=== PATIENT | male | born 1990 | race Caucasian/White ===

== ENCOUNTER 2018-11-30 05:45 | Emergency (ER) | payer OTHER ==
[~2018-11-30] VITALS: Ht 182.9 cm; Wt 80.7 kg
[~2018-11-30 05:45] MED LIST: TAMIFLU75 MG ORAL
[2018-11-30 05:52] VITALS: BP 133/86
--- NOTE | 2018-11-30 05:52 | NUR ---
ED Nurse Note: Walk-in patient presents with complaints of rash at left face x 3 days. Patient reports pain level of 3/10.
[2018-11-30] MEDS ORDERED: Acetaminophen 500mg (ES) tab ORAL ONE (06:30)
[2018-11-30] MEDS ORDERED: Neosporin Oint Ud Pkt TOPIC ONE (06:30)
[2018-11-30] MEDS ORDERED: Tetanus/Diptheria/Pertussis IM ONE (06:30)
--- NOTE | 2018-11-30 06:33 | Emergency Room Report ---
History of Present Illness General Chief Complaint: Skin Rash/Abscess Source: Patient Present Illness HPI The patient presents with 2 days of developing rash along the left side of his face. In the beginning he felt that he was having sinus problems. He denies any fever but feels fatigued. He took an Advil half an hour before coming to the hospital. He rates the pain 4/10 at this time and aching. It is constant. He feels a little bit of pain in his jaw also by the TMJ. Denies any eye pain or change in vision. In addition he has no change in his hearing or sore throat. His doctor prescribed ointment for him. His doctor felt it might be impetigo. This was without examining the patient. The patient has no ill contacts and has no immune suppressed condition that he knows of. He is unsure when his last tetanus vaccination was. No chills, chest pain, palpitations, nausea, vomiting, diarrhea, dysuria, abdominal pain, shortness of breath, depression, anxiety, headache. Allergies: Coded Allergies: PENICILLINS (Verified Allergy, Unknown, 05/02/15) Patient History Past Medical History: see triage record Social History: Denies: smoking Social History Narrative Works for [employer] Reviewed Nursing Documentation: PMH: Agreed; PSxH: Agreed Nursing Documentation-PMH Past Medical History: No Stated History Review of Systems All Other Systems: negative except mentioned in HPI Physical Exam Vital Signs Date Time Temp Pulse Resp B/P (MAP) Pulse Ox O2 Delivery O2 Flow Rate FiO2 11/30/18 05:52 97.9 64 15 133/86 (102) 97 Room Air Sp02 EP Interpretation: reviewed, normal General Appearance: well appearing, no apparent distress, GCS 15 Head: normocephalic, atraumatic Eyes: bilateral eye normal inspection, bilateral eye PERRL, bilateral eye EOMI ENT: normal pharynx, TMs + canals normal - L examined, moist mucus membranes Neck: full range of motion, supple Respiratory: lungs clear Cardiovascular #1: regular rate, rhythm Cardiovascular #2: 2+ radial (R) Gastrointestinal: normal inspection Musculoskeletal: gait/station normal Neurologic: alert, oriented x3, grossly normal Psychiatric: mood/affect normal Skin: warm/dry, other - vesicular rash with erythematous base without crusting V2 distribution Medical Decision Making Diagnostic Impression: Primary Impression: Shingles Qualified Codes: B02.9 - Zoster without complications ER Course Patient presents with 2 days of vesicular rash in the left side of the face. Differential impetigo, cellulitis or shingles. Due to the appearance of the rash this is more likely to be shingles however impetigo cannot be excluded. Tetanus will be updated. The patient will be given a dose of acyclovir and Tylenol. In addition Neosporin will be applied. Discussed with patient the 2 possible etiologies of the rash. Discussed the need for treatment and close follow-up with his doctor with suggested further laboratory tests. In addition told the patient of cautions for his eye. If he starts having eye pain he was advised to be the return immediately or to seek consultation with an consultant education. There is no evidence of ocular involvement at this time. Patient stable for outpatient observation and treatment. (Patient later called with some eye irritation. Advised either to f/u PMD or to return. Discussed with PA and oncoming MD if patient returns to perform slit lamp exam.) Last Vital Signs Date Time Temp Pulse Resp B/P (MAP) Pulse Ox O2 Delivery O2 Flow Rate FiO2 11/30/18 06:53 97.9 78 15 133/86 97 Room Air Status: improved Disposition: HOME, SELF-CARE Condition: Improved Scripts Cephalexin* (KEFLEX*) 500 Mg Capsule 500 MG ORAL EVERY 6 HOURS, #28 CAP Prov: Ian Nielsen MD 11/30/18 Ibuprofen* (MOTRIN*) 600 Mg Tablet 600 MG ORAL Q6H PRN for For Pain, #20 TAB 0 Refills Prov: Ian Nielsen MD 11/30/18 Mupirocin* (MUPIROCIN*) 22 Gm Oint...g. 1 APPLIC TOPIC THREE TIMES A DAY, #20 GM Prov: Ian Nielesn MD 11/30/18 Valacyclovir Hcl* (VALTREX*) 500 Mg Tablet 1000 MG ORAL TID, #20 TAB Prov: Ian Nielsen MD 11/30/18 Referrals: NON PHYSICIAN (PCP) Ian Nielsen MD Nov 30, 2018 06:33
[2018-11-30] MEDS ORDERED: CEPHALEXIN500 MG ORAL (06:38)
[2018-11-30] MEDS ORDERED: MUPIROCIN22 GM TOPIC (06:38)
[2018-11-30] MEDS ORDERED: IBUPROFEN600 MG ORAL (06:38)
[2018-11-30] MEDS ORDERED: VALACYCLOVIR500 MG ORAL (06:38)
[2018-11-30 06:53] VITALS: BP 133/86
--- NOTE | 2018-11-30 06:53 | NUR ---
ED Nurse Note: Patient cleared for discharge by ERMD, no s/s of acute distress and verbalized understanding of discharge instructions. Patient departed with all belongings to his personal vehicle.
== END 2018-11-30 06:53 | disposition home or self-care (01) ==
LOC: EMR 06:21
DX: B02.9 Zoster without complications (principal); Z88.0 Allergy status to penicillin; Z23 Encounter for immunization
CPT/HCPCS: 90471; 90715; 99283

== ENCOUNTER 2020-01-22 01:58 | Emergency (ER) | payer OTHER ==
[~2020-01-22] VITALS: Ht 182.9 cm; Wt 83.0 kg
[~2020-01-22 01:58] MED LIST changes: +CEPHALEXIN500 MG ORAL; +IBUPROFEN600 MG ORAL; +MUPIROCIN22 GM TOPIC; +VALACYCLOVIR500 MG ORAL
[2020-01-22 02:09] VITALS: BP 143/94
--- NOTE | 2020-01-22 02:09 | NUR ---
ED Nurse Note: pt ambulated into ed from home CO inability to sleep at night due to anxiety. pt aao x 4, ambulates with steady gait, vss no ss of distress noted. pt denies pain, SOB, n/v, fever. pt denies chest pain or cardiac issues. Awaiting ERMD at bedside. pt placed in gown. awaiting further orders.
--- NOTE | 2020-01-22 02:26 | NUR ---
ED Nurse Note: ERMD at bedside
--- NOTE | 2020-01-22 02:37 | Emergency Room Report ---
History of Present Illness General Chief Complaint: General Complaint Source: Patient Present Illness HPI Patient presents with inability to sleep and occasional tachycardia after ingesting mushrooms and cocaine on Monday. He also did this on Monday. We are now early Monday morning. He had to cloth covered helmet puller when he was driving back from [place] because he felt that he was going to pass out. His friends gave him a ride back to [place]. This got better. This was on Monday. On Monday he was fasting and then worked out. He had some bouts of diarrhea. He denies any fevers or chills. There is no chest pain or body pain. Patient is treated for anxiety with gabapentin. He tried taking a dose yesterday. It has not helped. He had continued feelings of anxiety and insomnia. He also had some shortness of breath and palpitations. He spoke with his therapist yesterday who recommended presenting to the emergency department. He presented to the emergency department for evaluation. Risk factors for cardiac disease: None, recent cocaine use Prior to the trip to [place] he tested negative for Covid along with his friends. He took a test yesterday but does not have results yet. No fevers, chills, sore throat, nausea, vomiting, diarrhea, dysuria, abdominal pain, joint pain, rashes, headache. Allergies: Coded Allergies: PENICILLINS (Verified Allergy, Unknown, 05/02/15) SULFA (SULFONAMIDE ANTIBIOTICS) (Verified Allergy, Unknown, 01/22/20) COVID-19 Screening Contact w/high risk pt: No Experienced COVID-19 symptoms?: No COVID-19 Testing performed ADMINISTRATIVE SUPPORT COORDINATOR: No COVID-19 Screening: Negative COVID-19 COVID-19 Testing Source: [facility] Patient History Past Medical History: see triage record Social History: Reports: drug use; Denies: smoking Social History Narrative Works for [employer] Reviewed Nursing Documentation: PMH: Agreed; PSxH: Agreed Nursing Documentation-PMH Past Medical History: No History, Except For Review of Systems All Other Systems: negative except mentioned in HPI Physical Exam Vital Signs Date Time Temp Pulse Resp B/P (MAP) Pulse Ox O2 Delivery O2 Flow Rate FiO2 01/22/20 02:01 97.7 66 18 143/94 (110) 98 Room Air Sp02 EP Interpretation: reviewed, normal General Appearance: well appearing, no apparent distress, GCS 15 Head: normocephalic Eyes: left eye abnormal EOM - Inferior rectus laxity; bilateral eye normal i nspection, bilateral eye PERRL ENT: moist mucus membranes Neck: supple Respiratory: lungs clear, normal breath sounds Cardiovascular #1: regular rate, rhythm Cardiovascular #2: 2+ radial (R) Gastrointestinal: normal inspection, normal bowel sounds, non tender, no mass, non-distended Musculoskeletal: back normal, normal range of motion, gait/station normal Neurologic: alert, shop tailor III-XII nml as tested - See EOM, distal neuro normal, oriented x3, sensory intact, cerebellar normal, motor weakness, speech normal Psychiatric: anxious Skin: no rash, warm/dry Medical Decision Making Diagnostic Impression: Primary Impression: Hyperventilation Additional Impressions: Substance abuse Anxiety ER Course Patient presents with dyspnea this intermittent after ingesting mushrooms and cocaine on Monday and Monday. Differential includes exacerbation of anxiety, electrolyte imbalance, other adulterants in the drugs used, cardiac arrhythmia amongst others. Based on his history and physical exam pulmonary bolus is extremely unlikely. Patient evaluated with EKG and labs. Patient treated with IV hydration. Patient unable to receive a dose of Ativan as he is walked here from his home. Labs unremarkable aside from elevated BUN. Patient improved after IV hydration. Discussed findings and most likely etiology of dyspnea and palpitations. Discussed staining from cocaine. Discussed the importance of outpatient follow- up. Patient given a dose of Vistaril prior to discharge. No medical emergency at this time. Patient stable for outpatient observation and treatment. Laboratory Tests Test 01/22/20 02:40 01/22/20 03:20 White Blood Count 6.0 K/UL (4.8-10.8) Red Blood Count 5.19 M/UL (4.70-6.10) Hemoglobin 16.0 G/DL (14.2-18.0) Hematocrit 46.6 % (42.0-52.0) Mean Corpuscular Volume 90 FL (80-99) Mean Corpuscular Hemoglobin 30.7 PG (27.0-31.0) Mean Corpuscular Hemoglobin Concent 34.3 G/DL (32.0-36.0) Red Cell Distribution Width 12.2 % (11.6-14.8) Platelet Count 246 K/UL (150-450) Mean Platelet Volume 6.9 FL (6.5-10.1) Neutrophils (%) (Auto) 40.9 % (45.0-75.0) L Lymphocytes (%) (Auto) 43.5 % (20.0-45.0) Monocytes (%) (Auto) 11.1 % (1.0-10.0) H Eosinophils (%) (Auto) 3.2 % (0.0-3.0) H Basophils (%) (Auto) 1.3 % (0.0-2.0) Prothrombin Time 11.1 SEC (9.30-11.50) Prothrombin Time INR 1.0 (0.9-1.1) Activated Partial Thromboplast Time 29 SEC (23-33) Sodium Level 135 MMOL/L (136-145) L Potassium Level 4.0 MMOL/L (3.5-5.1) Chloride Level 102 MMOL/L (98-107) Carbon Dioxide Level 28 MMOL/L (21-32) Anion Gap 5 mmol/L (5-15) Blood Urea Nitrogen 19 mg/dL (7-18) H Creatinine 1.1 MG/DL (0.55-1.30) Estimated Glomerular Filtration Rate > 60 mL/min (>60) Glucose Level 99 MG/DL (74-106) Calcium Level 8.5 MG/DL (8.5-10.1) Magnesium Level 2.2 MG/DL (1.8-2.4) Total Bilirubin 0.9 MG/DL (0.2-1.0) Aspartate Amino Transferase (AST) 22 U/L (15-37) Alanine Aminotransferase (ALT) 27 U/L (12-78) Alkaline Phosphatase 77 U/L (46-116) Total Creatine Kinase 102 U/L (26-308) Troponin I 0.000 ng/mL (0.000-0.056) C-Reactive Protein, Quantitative < 0.4 mg/dL (0.00-0.90) Pro-B-Type Natriuretic Peptide 11 pg/mL (0-125) Total Protein 7.3 G/DL (6.4-8.2) Albumin 4.1 G/DL (3.4-5.0) Globulin 3.2 g/dL Albumin/Globulin Ratio 1.3 (1.0-2.7) Urine Color Pale yellow Urine Appearance Clear Urine pH 6 (4.5-8.0) Urine Specific [place] 1.015 (1.005-1.035) Urine Protein Negative (NEGATIVE) Urine Glucose (UA) Negative (NEGATIVE) Urine Ketones Negative (NEGATIVE) Urine Blood Negative (NEGATIVE) Urine Nitrite Negative (NEGATIVE) Urine Bilirubin Negative (NEGATIVE) Urine Urobilinogen Normal MG/DL (0.0-1.0) Urine Leukocyte Esterase Negative (NEGATIVE) Urine Opiates Screen Negative (NEGATIVE) Urine Barbiturates Screen Negative (NEGATIVE) Phencyclidine (PCP) Screen Negative (NEGATIVE) Urine Amphetamines Screen Negative (NEGATIVE) Urine Benzodiazepines Screen Negative (NEGATIVE) Urine Cocaine Screen Negative (NEGATIVE) Urine Marijuana (THC) Screen Negative (NEGATIVE) EKG Diagnostic Results Rate: normal Rhythm: NSR ST Segments: no acute changes Rhythm Strip Diag. Results EP Interpretation: yes Rhythm: NSR, no PVC's, no ectopy Last Vital Signs Date Time Temp Pulse Resp B/P (MAP) Pulse Ox O2 Delivery O2 Flow Rate FiO2 01/22/20 04:42 97.7 63 16 129/81 99 Room Air Status: improved Disposition: HOME, SELF-CARE Condition: Improved Scripts Hydroxyzine Pamoate (VISTARIL) 25 Mg Capsule 25 MG PO Q8HR PRN for For Anxiety, #10 CAP Prov: Ian Nielsen MD 01/22/20 Referrals: NON PHYSICIAN (PCP) Ian Nielsen MD Jan 22, 2020 02:37
[2020-01-22 02:50] LABS: BASOPHILS % (AUTO) 1.3 % (0.0-2.0); EOSINOPHILS % (AUTO) 3.2 % (0.0-3.0); HEMATOCRIT 46.6 % (42.0-52.0); LYMPHOCYTES % (AUTO) 43.5 % (20.0-45.0); MEAN CORPUSCULAR VOLUME 90 FL (80-99); MONOCYTES % (AUTO) 11.1 % (1.0-10.0); NEUTROPHILS % (AUTO) 40.9 % (45.0-75.0); PLATELET COUNT 246 K/UL (150-450); RED BLOOD COUNT 5.19 M/UL (4.70-6.10); RED CELL DISTRIBUTION WIDTH 12.2 % (11.6-14.8)
--- NOTE | 2020-01-22 02:50 | NUR ---
ED Nurse Note: all medications adminsitered, pt tolerated wel no ss of distress noted. will continue to monitor. pt states he is unable to provide UA at this time. ERMD aware
[2020-01-22 02:59] LABS: ANION GAP 5 mmol/L (5-15); BLOOD UREA NITROGEN 19 mg/dL (7-18); CALCIUM 8.5 MG/DL (8.5-10.1); CARBON DIOXIDE 28 MMOL/L (21-32); CHLORIDE 102 MMOL/L (98-107); CREATININE 1.1 MG/DL (0.55-1.30); SODIUM 135 MMOL/L (136-145)
[2020-01-22 03:09] LABS: ALANINE AMINOTRANSFERASE 27 U/L (12-78); ALBUMIN 4.1 G/DL (3.4-5.0); ALBUMIN/GLOBULIN RATIO 1.3 (1.0-2.7); ALKALINE PHOSPHATASE 77 U/L (46-116); ASPARTATE AMINO TRANSFERASE 22 U/L (15-37); BILIRUBIN,TOTAL 0.9 MG/DL (0.2-1.0); CREATINE KINASE 102 U/L (26-308)
--- NOTE | 2020-01-22 03:27 | NUR ---
ED Nurse Note: UA sent to lab
[2020-01-22 03:30] LABS: APPEARANCE,URINE CLEAR; BILIRUBIN, URINE NEGATIVE (NEGATIVE); COLOR,URINE PALE YELLOW; GLUCOSE, URINE (UA) NEGATIVE (NEGATIVE); KETONES,URINE NEGATIVE (NEGATIVE); LEUKOCYTE ESTERASE ,URINE NEGATIVE (NEGATIVE); NITRITE,URINE NEGATIVE (NEGATIVE); PH,URINE 6 (4.5-8.0); PROTEIN,URINE NEGATIVE (NEGATIVE); UROBILINOGEN,URINE NORMAL MG/DL (0.0-1.0)
--- NOTE | 2020-01-22 04:11 | NUR ---
ED Nurse Note: IV removed per ERMD
[2020-01-22 04:18] VITALS: BP 132/86
--- NOTE | 2020-01-22 04:18 | NUR ---
ED Nurse Note: ERMD at bedside
[2020-01-22] MEDS ORDERED: VISTARIL25 M1 PO (04:29)
--- NOTE | 2020-01-22 04:32 | NUR ---
ED Nurse Note: all medications administered, pt tolerated well no ss of distress noted. will continue to monitor
--- NOTE | 2020-01-22 04:41 | NUR ---
ER DISCHARGE NOTE: Patient is cleared to be discharged home per ERMD, pt is aox4, 100% on room air, with stable vital signs. pt was given dc and prescription instructions, pt was able to verbalize understanding, pt id band removed without complications. pt is able to ambulate with steady gait. pt took all belongings.
[2020-01-22 04:42] VITALS: BP 129/81
--- NOTE | 2020-01-22 14:24 | Cardiology Report ---
APPROVED REPORT EKG Measurement Heart [id number] DC 160P [id number] <Conclusion> Normal sinus rhythm with sinus arrhythmia Right axis deviation Nonspecific ST and T wave abnormality Abnormal ECG
== END 2020-01-22 04:40 | disposition home or self-care (01) ==
LOC: EMR 02:33
DX: R06.4 Hyperventilation (principal); F14.10 Cocaine abuse, uncomplicated; F16.10 Hallucinogen abuse, uncomplicated; F41.9 Anxiety disorder, unspecified; Z88.0 Allergy status to penicillin; Z88.2 Allergy status to sulfonamides
CPT/HCPCS: 36415; 80053; 80307; 81003; 82550; 83735; 83880; 84484; 85025; 85610; 85730; 86140; 93005; 96360; 99284; J7030